=== PATIENT | male | born 1995 | race Caucasian/White ===

== ENCOUNTER 2019-02-05 18:53 | Emergency (ER) | payer OTHER ==
[~2019-02-05] VITALS: Ht 172.7 cm; Wt 116.0 kg
[~2019-02-05 18:53] MED LIST: IBUP-1542 PO
[2019-02-05 19:01] VITALS: Ht 172.7 cm; Wt 116.0 kg
--- NOTE | 2019-02-05 19:08 | EN ---
Date/Time of Note Date/Time of Note DATE: 02/05/19 TIME: 19:07 ER Progress Note Quick RME note: Medical screening exam was initiated and lab/imaging studies were ordered. Patient will be seen in ED 2 by another provider. HPI: 23-year-old male who presents to the ER for concerns of left ear pain x2 days. Patient reports decreased hearing from his left ear. Patient does report recent water studies. Patient denies any fevers or chills. Physical exam: ENT: Left cerumen impaction noted. Unable to visualize TM. Orders placed: Bilateral ear lavage. MERRITT PACK PA-C Feb 05, 2019 19:08
--- NOTE | 2019-02-05 20:13 | ERD ---
ER Documentation Chief Complaint Chief Complaint L ear pain X 2 days HPI Patient is a 23-year-old male, no past medical history, presents to the ER for concerns of ear pain for last 2 days. Patient reports decreased hearing from left ear. Patient denies any fevers or chills. Patient reports to using Q- tips. Patient has no cough, rhinorrhea, sore throat, abdominal pain, nausea vomiting or LOC. ROS All systems reviewed and are negative except as per history of present illness. Medications Home Meds Active Scripts Ibuprofen* (Motrin*) 600 Mg Tab, 600 MG PO Q6, #30 TAB Prov:MERRITT PACK PA-C 02/05/19 Allergies Allergies: Coded Allergies: No Known Allergy (Unverified , 02/05/19) PMhx/Soc History of Surgery: Yes (RIGHT PINKY SX, LEFT ELBOW STAPH INFECTION) Hx Alcohol Use: No Hx Substance Use: No Hx Tobacco Use: No Smoking Status: Never smoker FmHx Family History: No diabetes Physical Exam Vitals Vital Signs Date Temp Pulse Resp B/P (MAP) Pulse Ox O2 O2 Flow FiO2 Time Delivery Rate 02/05/19 98.1 68 18 138/68 99 19:01 (91) Physical Exam GENERAL: Well-developed, well-nourished male. Appears in no acute distress. HEAD: Normocephalic, atraumatic. EYES: Pupils are equally reactive bilaterally. EOMs grossly intact. No conjunctival erythema. ENT: Moist mucous membranes. No uvula deviation. No kissing tonsils. Unable to visualize left TM secondary to cerumen impaction. Right TM visualized, normal, nonbulging. Bilateral mastoid processes are nonerythematous, nonbulging. NECK: Supple. No meningismus. Normal range of motion of the neck. LUNG: Clear to auscultation bilaterally. No rhonchi, wheezing, rales or coarse breath sounds. HEART: Regular rate and rhythm. No murmurs, rubs or gallops EXTREMITIES: Equal pulses bilaterally. No peripheral clubbing, cyanosis or rainer ma. No unilateral leg swelling. NEUROLOGIC: Alert and oriented. Moving all four extremities without any difficulty. Normal speech. Steady gait. SKIN: Normal color. Warm and dry. No rashes or lesions. Procedures/MDM MEDICAL DECISION MAKING: This is a 23-year-old male who presents the ER for concerns of v decreased hearing from his left ear as well as pain x2 days. Vital signs were reviewed. Patient was afebrile. Patient was not hypoxic.Ear exam revealed left cerumen impaction. Ear lavage was performed using H20/ hydrogen peroxide mix. No trauma or complications were noted. TM was visualized post-irrigation without any erythema or perforation. Patient reported hearing restored. Suspicion for otitis media, TM perforation, mastoiditis. Patient was nontoxic, non-ill appearing prior to discharge. Patient advised not to use Q-tips. PRESCRIPTIONS: Ibuprofen DISCHARGE: At this time, patient is stable for discharge and outpatient management. I have instructed the patient to follow-up with his/her primary care physician in 1-2 days. I have discussed with the patient the possibility of needing to see a specialist for further workup and diagnostic studies if the pain persists. I have instructed the patient to promptly return to the ER at any time for any new or worsening symptoms including increased pain, fever, swelling, discharge or hearing loss. The patient and/or family expressed understanding of and agreement with this plan. All questions were answered. Home care instructions were provided. Disclaimer: Inadvertent spelling and grammatical errors are likely due to EHR/dictation software use and do not reflect on the overall quality of patient care. Also, please note that the electronic time recorded on this note does not necessarily reflect the actual time of the patient encounter. Departure Diagnosis: Primary Impression: Impacted cerumen, bilateral Condition: Fair Patient Instructions: Cerumen Impaction, Home Care Referrals: [facility] YOU HAVE RECEIVED A MEDICAL SCREENING EXAM AND THE RESULTS INDICATE THAT YOU DO NOT HAVE A CONDITION THAT REQUIRES URGENT TREATMENT IN THE EMERGENCY DEPARTMENT. FURTHER EVALUATION AND TREATMENT OF YOUR CONDITION CAN WAIT UNTIL YOU ARE SEEN IN YOUR DOCTORS OFFICE WITHIN THE NEXT 1-2 DAYS. IT IS YOUR RESPONSIBILITY TO MAKE AN APPOINTMENT FOR FOLOW-UP CARE. IF YOU HAVE A PRIMARY DOCTOR --you should call your primary doctor and schedule an appointment IF YOU DO NOT HAVE A PRIMARY DOCTOR YOU CAN CALL OUR PHYSICIAN REFERRAL HOTLINE AT IF YOU CAN NOT AFFORD TO SEE A PHYSICIAN YOU CAN CHOSE FROM THE FOLLOWING [facility] [address] [facility]. [facility] [address] [facility] [facility] [address] [facility] [facility] [address] [facility]. [facility] [address] [facility]. [facility]. [address] [facility]. [facility] YOU HAVE RECEIVED A MEDICAL SCREENING EXAM AND THE RESULTS INDICATE THAT YOU DO NOT HAVE A CONDITION THAT REQUIRES URGENT TREATMENT IN THE EMERGENCY DEPARTMENT. FURTHER EVALUATION AND TREATMENT OF YOUR CONDITION CAN WAIT UNTIL YOU ARE SEEN IN YOUR DOCTORS OFFICE WITHIN THE NEXT 1-2 DAYS. IT IS YOUR RESPONSIBILITY TO MAKE AN APPOINTMENT FOR FOLOW-UP CARE. IF YOU HAVE A PRIMARY DOCTOR --you should call your primary doctor and schedule and appointment IF YOU DO NOT HAVE A PRIMARY DOCTOR YOU CAN CALL OUR PHYSICIAN REFERRAL HOTLINE AT . IF YOU CAN NOT AFFORD TO SEE A PHYSICIAN YOU CAN CHOSE FROM THE FOLLOWING [facility] INSTITUTIONS: [facility] [address] [place] [address] [facility] [address] [place] [address] [facility] [address] [place] [address] Additional Instructions: Call your primary care doctor TOMORROW for an appointment during the next 1-2 days.See the doctor sooner or return here if your condition worsens before your appointment time. MERRITT PACK PA-C Feb 05, 2019 20:13
[2019-02-05 20:15] VITALS: BP 129/86; PULSE 66; RESP 18
== END 2019-02-05 20:22 | disposition home or self-care (01) ==
LOC: FTE 18:53
DX: H61.23 Impacted cerumen, bilateral (principal)